=== PATIENT | male | born 1935 | race Caucasian/White ===

== ENCOUNTER → 2019-04-14 13:04 | Outpatient (CLI) | payer MEDICARE, OTHER, SELFPAY ==
--- NOTE | 2019-04-14 | DI.CT.S_ITS ---
PROCEDURE: CT ABDOMEN PELVIS WO/W CON INDICATIONS: HEMATURIA TECHNIQUE: Optional 5 mm thick noncontrast images acquired from the diaphragm to the symphysis pubis. After the administration of intravenous contrast, 5 mm thick images acquired from the diaphragm to the symphysis pubis after a 10-minute delay. 2 mm thick coronal and sagittal reformats were then performed of the kidneys and ureters. For radiation dose reduction, the following was used: automated exposure control, adjustment of mA and/or kV according to patient size. COMPARISON: Renal ultrasound 10/01/2017. FINDINGS: Image quality: Excellent. Lung bases: Mild bibasilar atelectasis. Lung bases are otherwise clear. Heart size is normal. Three-vessel coronary artery calcifications. Urinary system: Both kidneys are normal in size, without hydronephrosis. Left renal hilum nonobstructing calculus measuring 8 x 6 mm, (6/34). Additional punctate left calculus. No perinephric fat stranding. There is normal bilateral renal enhancement. Small peripelvic cyst. Renal calyces appear normal in morphology when filled with contrast. Opacified portions of both ureters demonstrate normal caliber. Bladder wall thickness is normal. No calcified bladder stones. Other solid organs: Liver is normal in size and enhancement. Multiple hepatic and splenic granulomas. Small hepatic cyst or hemangioma. Gallbladder is unremarkable. Biliary system is non dilated. Pancreas enhances normally. Spleen is normal in size and enhancement. No adrenal nodules. Peritoneum and bowel: Bowel loops demonstrate normal wall thickness and caliber. Increased stool in the right colon. No free fluid or air. Nodes and vessels: No retroperitoneal or mesenteric adenopathy by size criteria. Aorta and inferior vena cava are normal in size. Extensive calcified atherosclerotic plaque. Abdominal wall: No ventral hernias. Pelvis: Prostatomegaly. Post TURP. Surgical clips in the pelvis. No pathologic free pelvic fluid. No inguinal hernias or adenopathy. Bones: No suspicious bony lesions. Marked dextroscoliosis. No vertebral body compression fractures. IMPRESSION: 1. No suspicious renal mass. No filling defect in the opacified ureters. 2. Nonobstructing 8 mm calculus in the left renal hilum. Additional left punctate calculus. Dictated by: Dexter Landry M.D. on 04/14/2019 at 16:07 Approved by: Dexter Landry M.D. on 04/14/2019 at 16:24
== END ==
PROVIDERS: Visit Provider Urology
DX: N20.0 Calculus of kidney (principal); R31.9 Hematuria, unspecified
CPT/HCPCS: 74178; Q9967